=== PATIENT | male | born 1945 | race Caucasian/White ===

== ENCOUNTER → 2020-11-23 | Outpatient (CLI) | payer MEDICARE, OTHER ==
[~2020-11-23] MED LIST: ASPI81TA45 PO; alfuzosin PO; atorvastatin PO; breo INH; synthroid PO
[2020-11-23 08:15] LABS: BASOPHILS % (AUTO) 1 % (0-1); EOSINOPHILS % (AUTO) 1 % (1-7); LYMPHOCYTES % (AUTO) 17 % (22-44); MEAN CORPUSCULAR HEMOGLOBIN 37.1 pg (27.5-34.5); MEAN CORPUSCULAR HGB CONC 33.3 g/dL (33.2-36.2); MEAN PLATELET VOLUME 7.2 fL (7.4-10.4); MONOCYTES % (AUTO) 9 % (2-9); NEUTROPHILS % (AUTO) 73 % (42-75); PLATELET COUNT 171 x10^3/uL (130-400); RED BLOOD COUNT 4.56 x10^6/uL (4.38-5.82); RED CELL DISTRIBUTION WIDTH 14.5 % (9.4-14.8)
[2020-11-23 08:19] LABS: MD NO
[2020-11-23 08:27] LABS: ALANINE AMINOTRANSFERASE 25 U/L (12-78); ANION GAP 6 mmol/L (5-15); CALCIUM 9.4 mg/dL (8.5-10.1); CHLORIDE 107 mmol/L (98-107); CREATININE 0.72 mg/dL (0.7-1.3)
[2020-11-23 08:29] LABS: ALKALINE PHOSPHATASE 116 U/L (45-117); BILIRUBIN,TOTAL 0.6 mg/dL (0.2-1.0); TOTAL PROTEIN 7.2 g/dL (6.4-8.2)
== END | disposition home or self-care (01) ==
LOC: STAR 07:04 → MERGE 07:04
PROVIDERS: ATTEND Surgery
DX: Z01.812 Encounter for preprocedural laboratory examination (principal); Z20.822 Contact with and (suspected) exposure to COVID-19
CPT/HCPCS: 36415; 71046; 80053; 85025; 93005; U0003

== ENCOUNTER 2020-11-28 10:02 | Inpatient (IN) | payer MEDICARE ==
[~2020-11-28] VITALS: Ht 175.3 cm; Wt 78.3 kg
[2020-11-28] MEDS ORDERED: LACTATED RINGERS 1,000 ML IV SCH (10:30)
[2020-11-28] MEDS ORDERED: CHLORHEXIDINE 15 ML UDC PO ONE (10:30)
[2020-11-28] MEDS ORDERED: FLUT1AER INH (10:31)
[2020-11-28] MEDS ORDERED: ATOR40TA78 PO (10:31)
[2020-11-28] MEDS ORDERED: ALFU10TA PO (10:31)
[2020-11-28] MEDS ORDERED: LEVO112T2 PO (10:31)
[2020-11-28] MEDS ORDERED: CHLORHEXIDINE 15 ML UDC ONE (10:35)
[2020-11-28] MEDS ORDERED: EPINEPHRINE 1 MG/ML, 1ML ONE (10:43)
[2020-11-28] MEDS ORDERED: BUPIVACAINE/PF 0.5% ONE (10:43)
[2020-11-28] MEDS ORDERED: HEPARIN 1,000 UNITS/ML, 10ML ONE (10:43)
[2020-11-28] MEDS ORDERED: THROMBIN 20,000 UNIT VIAL TP ONE (10:43)
[2020-11-28 10:55] VITALS: BP 122/79
[2020-11-28] MEDS ORDERED: FENTANYL PF 250 MCG/5ML ONE (11:50)
[2020-11-28] MEDS ORDERED: PROPOFOL 50 ML ONE (11:50)
[2020-11-28] MEDS ORDERED: PROPOFOL 10 MG/ML, 20ML ONE (11:57)
[2020-11-28] MEDS ORDERED: ROCURONIUM 10MG/ML,5ML ONE (11:57)
[2020-11-28] MEDS ORDERED: DEXAMETHASONE 4 MG/ML, 1ML ONE (11:57)
[2020-11-28] MEDS ORDERED: ONDANSETRON 2MG/ML, 2ML ONE (11:57)
[2020-11-28] MEDS ORDERED: HEPARIN 1,000 UNITS/ML, 1ML IV ONE (12:55)
[2020-11-28] MEDS ORDERED: BUPIVACAINE/PF-EPI 0.5% 1:200K INFIL ONE (12:55)
[2020-11-28] MEDS ORDERED: FENTANYL PF 100 MCG/2ML IV PRN ×2 (13:00→16:30)
[2020-11-28] MEDS ORDERED: ONDANSETRON 2MG/ML, 2ML IVPush PRN ×2 (13:00→16:30)
[2020-11-28] MEDS ORDERED: LABETALOL 5MG/ML, 20ML IV PRN ×2 (13:00→16:30)
[2020-11-28] MEDS ORDERED: EPHEDRINE 50 MG/ML, 1ML IVPush PRN (13:00)
[2020-11-28] MEDS ORDERED: DIPHENHYDRAMINE 50 MG/ML, 1ML IVPush PRN (13:00)
[2020-11-28] MEDS ORDERED: MEPERIDINE/PF 25MG/0.5ML IVPush PRN ×2 (13:00→16:30)
[2020-11-28] MEDS ORDERED: DIAZEPAM 5 MG/ML, 2ML IVPush PRN (13:00)
[2020-11-28] MEDS ORDERED: PROMETHAZINE 25 MG/ML, 1ML IVPush PRN ×2 (13:00→16:30)
[2020-11-28] MEDS ORDERED: morphine SULFATE 10 MG/ML, 1ML IVPush PRN (13:00)
[2020-11-28] MEDS ORDERED: OXYcodone 5 MG/5 ML ORAL.SOL UDC PO PRN ×2 (13:00→16:30)
[2020-11-28] MEDS ORDERED: EPHEDRINE 50 MG/ML, 1ML IM PRN (13:00)
[2020-11-28] MEDS ORDERED: ACETAMINOPHEN 650 MG/20.3 ML UDC ONE (15:58)
[2020-11-28] MEDS ORDERED: OXYcodone 5 MG/5 ML ORAL.SOL UDC ONE (15:58)
[2020-11-28] MEDS ORDERED: FENTANYL PF 100 MCG/2ML ONE (15:58)
[2020-11-28] MEDS ORDERED: hydrALAzine 20 MG/ML, 1ML IV PRN (16:30)
[2020-11-28] MEDS ORDERED: HYDROmorphone 1 MG/ML, 1ML INJ IVPush PRN (16:30)
[2020-11-28] MEDS ORDERED: LORazepam 2 MG/ML, 1ML IVPush PRN (16:30)
[2020-11-28] MEDS ORDERED: ACETAMINOPHEN 650 MG/20.3 ML UDC PO PRN (16:30)
[2020-11-28] MEDS ORDERED: ONDANSETRON 2MG/ML, 2ML IV PRN (18:00)
[2020-11-28] MEDS ORDERED: HYDROcodone/APAP 5/325 TABLET PO PRN (18:00)
[2020-11-28] MEDS: LACTATED RINGERS 1,000 ML IV SCH (18:47)
[2020-11-28 19:07] VITALS: BP 149/82
[2020-11-28] MEDS ORDERED: LEVO125T5 PO (20:25)
[2020-11-28] MEDS: SODIUM CHLORIDE FLUSH 10ML SYR IVF SCH (20:26)
[2020-11-28] MEDS ORDERED: ATORVASTATIN 40 MG TABLET PO SCH (21:00)
[2020-11-29 00:21] VITALS: BP 147/81
[2020-11-29] MEDS: LACTATED RINGERS 1,000 ML IV SCH (04:00)
[2020-11-29 04:46] VITALS: BP 138/78
[2020-11-29] MEDS: HEPARIN 5,000 UNITS/ML, 1ML SQ SCH ×2 (05:43→14:12)
[2020-11-29] MEDS ORDERED: LEVOTHYROXINE 112 MCG TABLET PO SCH (06:00)
[2020-11-29] MEDS ORDERED: ASPIRIN 81 MG TABLET EC PO SCH (06:00)
[2020-11-29 06:50] VITALS: BP 158/91
[2020-11-29] MEDS ORDERED: ALFUZOSIN 10 MG PO SCH ×2 (09:00→21:00)
[2020-11-29] MEDS ORDERED: FLUTICASONE/VILANTEROL 100-25MCG/INH INH SCH ×2 (09:00→21:00)
[2020-11-29] MEDS: SODIUM CHLORIDE FLUSH 10ML SYR IVF SCH (09:00)
[2020-11-29 13:00] VITALS: BP 124/75
[2020-11-29] MEDS ORDERED: HYDR-2214 PO (14:43)
== END 2020-11-29 16:40 | disposition home or self-care (01) | DRG 254 ==
LOC: ORIP 10:02 → 4NE 17:12
PROVIDERS: ADMIT Surgery; ATTEND Surgery
PROC: 047C04Z Dilation of Right Common Iliac Artery with Drug-eluting Intraluminal Device, Open Approach (ICD-10-PCS; 2020-11-28)
PROC: 047H04Z Dilation of Right External Iliac Artery with Drug-eluting Intraluminal Device, Open Approach (ICD-10-PCS; 2020-11-28)
PROC: B41C1ZZ Fluoroscopy of Pelvic Arteries using Low Osmolar Contrast (ICD-10-PCS; 2020-11-28)
PROC: B4101ZZ Fluoroscopy of Abdominal Aorta using Low Osmolar Contrast (ICD-10-PCS; 2020-11-28)
PROC: B41J1ZZ Fluoroscopy of Other Lower Arteries using Low Osmolar Contrast (ICD-10-PCS; 2020-11-28)
PROC: 04CK0ZZ Extirpation of Matter from Right Femoral Artery, Open Approach (ICD-10-PCS; principal; 2020-11-28 12:00)
DX: I70.211 Atherosclerosis of native arteries of extremities with intermittent claudication, right leg (principal); I77.1 Stricture of artery; I70.221 Atherosclerosis of native arteries of extremities with rest pain, right leg; Z20.822 Contact with and (suspected) exposure to COVID-19
CPT/HCPCS: 75710; 88304; C1725; G0378; J0171; J1100; J1644; J2405; J2704; J3010; C1751; C1769; C1874; C1876; C1894; J7120